=== PATIENT | female | born 1990 | race Caucasian/White ===

== ENCOUNTER 2016-08-06 17:40 | Emergency (ER) | payer MEDICAID ==
[~2016-08-06] VITALS: Ht 154.9 cm; Wt 68.0 kg
[2016-08-06 18:04] VITALS: BP 123/93
== END 2016-08-07 00:57 | disposition left against medical advice (07) ==
LOC: ER 17:40
DX: Z53.21 Procedure and treatment not carried out due to patient leaving prior to being seen by health care provider (principal)

== ENCOUNTER 2016-10-21 21:32 | Emergency (ER) | payer MEDICAID ==
[~2016-10-21] VITALS: Ht 152.4 cm; Wt 84.0 kg
[2016-10-21 22:58] VITALS: BP 122/70
== END 2016-10-21 23:04 | disposition home or self-care (01) ==
LOC: ER 21:32
DX: R55 Syncope and collapse (principal); F41.9 Anxiety disorder, unspecified; Z98.890 Other specified postprocedural states
CPT/HCPCS: 99283